=== PATIENT | male | born 1930 | race Caucasian/White ===

== ENCOUNTER 2017-09-17 08:54 | Emergency (ER) | payer MEDICARE ==
[2017-09-17 09:26] LABS: #Basophils 0.1 thou/uL (0.0-0.2); #Eosinphils 0.3 thou/uL (0.0-0.7); #Monocytes 0.6 thou/uL (0.11-0.59); #Neutrophils 6.8 thou/uL (1.40-6.50); %Basophils 0.9 % (0.0-1.0); %Lymphocytes 11.8 % (21.0-51.0); %Monocytes 6.4 % (0.0-10.0); %Neutrophils 77.8 % (42.0-75.0); Hemoglobin 13.9 g/dL (14.0-18.0); Mean Corpuscular HGB CONC 32.6 g/dL (32.0-36.0); Mean Corpuscular Hemoglobin 28.2 pg (27.0-31.0); Mean Corpuscular Volume 86.7 fl (80.0-94.0); Mean Platelet Volume 6.4 fL (7.4-10.4); Platelet Count 226 thou/uL (130-400); RBC Distribution Width 12.9 % (11.5-14.5); Red Blood Cell (RBC) Count 4.93 mill/uL (4.70-6.10); White Blood Cell (WBC) Count 8.7 thou/uL (4.8-10.8)
[2017-09-17 09:44] LABS: ALT (SGPT) 19 U/L (8-55); AST (SGOT) 19 U/L (5-34); Alkaline Phosphatase 107 U/L (40-150); Anion Gap 15 mmol/L (10-20); BUN (Urea Nitrogen) 24 mg/dL (8.4-25.7); Calc. Creatinine Clearance 0 mL/min (70-130); Calcium 9.5 mg/dL (7.8-10.44); Carbon Dioxide 26 mmol/L (23-31); Chloride 101 mmol/L (98-107); Estimated GFR-MDRD 55; Globulin 3.6 g/dL (2.4-3.5); Glucose 103 mg/dL (83-110); Potassium 4.7 mmol/L (3.5-5.1); Protein, Total 7.6 g/dL (5.8-8.1); Sodium 137 mmol/L (136-145)
[2017-09-17 09:46] LABS: CKMB 2.1 ng/mL (0-6.6); Troponin I Less than 0.010 ng/mL (< 0.028)
--- NOTE | 2017-09-17 15:23 | RAD ---
PORTABLE CHEST: Date: 09/17/17 An AP portable film at 0906 hours is compared with the 07/04/15 study. FINDINGS: There has been little interval change. Slight elevation of the left hemidiaphragm is chronic. There i s a slight increase in the interstitial lung markings, but I believe this is not acute. There are no lobar infiltrates or effusions. The upper lobe vessels are not congested. The heart size is normal an d unchanged. The trachea is midline. IMPRESSION: No acute thoracic finding. POS: HOME
== END 2017-09-17 10:42 | disposition home or self-care (01) ==
LOC: BURERS 08:54
DX: R11.2 Nausea with vomiting, unspecified (principal); E78.5 Hyperlipidemia, unspecified; I10 Essential (primary) hypertension; Z79.899 Other long term (current) drug therapy
CPT/HCPCS: 71045; 80053; 82553; 84484; 85025; 93005

== ENCOUNTER 2017-12-01 11:23 | Inpatient (IN) | payer MEDICARE ==
[2017-12-01 14:54] VITALS: BMI 24.4
[2017-12-01] MEDS: HYDROcodone/Acetaminophen 5/325 mg Tablet PO PRN (17:42)
[2017-12-01] MEDS ORDERED: Atorvastatin Calcium 10 MG TAB PO SCH (21:00)
[2017-12-01] MEDS: Atorvastatin Calcium 40 MG TAB PO SCH (21:46)
[2017-12-01] MEDS: Aspirin 325 MG TAB PO SCH (21:46)
[2017-12-01] MEDS: GLYCERIN EA EYE SCH (21:47)
[2017-12-01] MEDS: CARBOXYMETHYLCELLULOS EA EYE SCH (21:47)
[2017-12-01] MEDS: COMBIGAN R EYE SCH (21:47)
[2017-12-02] MEDS ORDERED: Non-Formulary Item 1 EACH (Lisinopril/Hydrochlorothiazide [Lisinopril-Hctz 20-12.5 Mg Tab PO SCH (09:00)
[2017-12-02] MEDS ORDERED: Timolol 0.5% Ophth Soln 5 ml Bottle EA EYE SCH (09:00)
[2017-12-02] MEDS ORDERED: Brimonidine Tartrate 0.2% Ophth Soln 5 ml Bottle EA EYE SCH (09:00)
[2017-12-02] MEDS: HYDROcodone/Acetaminophen 5/325 mg Tablet PO PRN ×2 (09:57→16:01)
[2017-12-02] MEDS: Aspirin 325 MG TAB PO SCH ×2 (09:59→21:37)
[2017-12-02] MEDS: COMBIGAN R EYE SCH ×2 (09:59→21:38)
[2017-12-02] MEDS: GLYCERIN EA EYE SCH ×2 (10:00→21:38)
[2017-12-02] MEDS: CARBOXYMETHYLCELLULOS EA EYE SCH ×2 (10:00→21:38)
[2017-12-02] MEDS ORDERED: Lisinopril 20 MG TAB PO SCH (11:00)
[2017-12-02] MEDS ORDERED: Hydrochlorothiazide 25 MG TAB PO SCH (11:00)
[2017-12-02] MEDS: Atorvastatin Calcium 40 MG TAB PO SCH (21:37)
[2017-12-03] MEDS: Hydrochlorothiazide 25 MG TAB PO SCH (09:34)
[2017-12-03] MEDS: Aspirin 325 MG TAB PO SCH ×2 (09:34→21:09)
[2017-12-03] MEDS: CARBOXYMETHYLCELLULOS EA EYE SCH ×2 (09:35→21:11)
[2017-12-03] MEDS: COMBIGAN R EYE SCH ×2 (09:35→21:11)
[2017-12-03] MEDS: Lisinopril 20 MG TAB PO SCH (09:35)
[2017-12-03] MEDS: GLYCERIN EA EYE SCH ×2 (09:35→21:11)
[2017-12-03] MEDS: HYDROcodone/Acetaminophen 5/325 mg Tablet PO PRN (18:17)
[2017-12-03] MEDS: Bisacodyl 5 MG TAB PO PRN (18:18)
[2017-12-03] MEDS: Atorvastatin Calcium 40 MG TAB PO SCH (21:08)
--- NOTE | 2017-12-04 08:22 | HP ---
ADMITTING PHYSICIAN: Dr. Penny Pearson PRIMARY CARE PHYSICIAN: Dr. Scar Sanz CHIEF COMPLAINT: Skilled care with physical and occupational therapy, status post left hip arthropla sty. HISTORY OF PRESENT ILLNESS: Mr. Brambila is an 87-year-old pleasant gentleman with hypert ension, hyperlipidemia, glaucoma and degenerative joint disease. The patient underwent elective left hip replacement on 11/28/2017. He did fine intraoperatively and postoperatively. Prior to his gan sfer the patient was able to participate with physical therapy. He walked about 270 feet using rolli ng walker with contact guard assist. The patient had significant fatigue, weakness after the physica l therapy. Due to his poor gait, decreased strength and endurance, recommendations for [facility] with physical therapy was initiated. He denies any worsening pain. His appetite is fair , no urinary complaints. He plans to go home with possible home health. PAST MEDICAL HISTORY: 1. Hypertension. 2. Hyperlipidemia. 3. Glaucoma. 4. Degenerative disk disease. PAST SURGICAL HISTORY: 1. Bladder surgery. 2. Total knee replacement, bilateral. 3. Hernia repair. 4. Appendectomy. 5. Laparoscopic cholecystectomy. 6. Carpal tunnel surgery. 7. Umbilical hernia repair. FAMILY HISTORY: Father due to heart attack. Mother due to old age. SOCIAL HISTORY: The patient is a nonsmoker, denies alcohol or drug use. The patient is with 2 children. He is retired, disabled due to knee problems. ALLERGIES: PENICILLIN. REVIEW OF SYSTEMS: GENERAL: Negative for weight loss or gain. Negative for fever or chills. HEAD/NECK: Positive for blurred vision. Negative for sore throat. CARDIOVASCULAR: Negative for palpitation, dyspnea or orthopnea. RESPIRATORY: Negative for shortness of breath, wheezing or chronic cough. GASTROINTESTINAL: Negative for abdominal pain, nausea, vomiting or diarrhea. GENITOURINARY: Negative for urgency, frequency, dysuria or nocturia. MUSCULOSKELETAL: Positive for left hip pain secondary to recent surgery, poor gait. PSYCHIATRIC: Negative for anxiety or depression. SKIN: Negative for skin rash or bleeding. MEDICATIONS: 1. Aspirin 325 mg b.i.d. 2. Lipitor 40 mg at bedtime. 3. Dulcolax 10 mg p.r.n. for constipation. 4. Hydrochlorothiazide 12.5 mg daily. 5. Hydrocodone 1 tablet every 6 hours p.r.n. for pain. 6. Lisinopril 20 mg daily. PHYSICAL EXAMINATION: VITAL SIGNS: Blood pressure of 132/61, temperature 98.5, pulse of 89, respiratory rate of 18, 02 sat 98% on room air. GENERAL: The patient is alert, oriented, not in respiratory distress. HEENT: Normocephalic, atraumatic. Pupils equally reactive to light. NECK: Supple. Negative for lymphadenopathy. Negative for carotid bruit or jugular venous distentio n. LUNGS: Symmetrical expansion. Clear to auscultation bilaterally. HEART: Regular rate and rhythm. Negative for murmur, rubs, gallops or heaves. ABDOMEN: Flat, soft, nontender, normoactive bowel sounds. Negative for deep or rebound tenderness. BACK: Negative for CVA tenderness. EXTREMITIES: Positive for decreased strength on left lower extremity secondary to recent surgery. N egative for cyanosis or clubbing. LABORATORY: Reviewed. ASSESSMENT AND PLAN: 1. Left total hip replacement, postoperative day #3, surgery done by Dr. Giles, negative for intrao perative or postoperative complication. The patient will get aspirin for deep venous thrombosis prop hylaxis. 2. Hypertension. Continue present hydrochlorothiazide and lisinopril. 3. Hyperlipidemia. Continue statins. 4. Glaucoma/macular degeneration. Continue home med eyedrops. 5. We will continue to monitor for infection, bleeding, pain management and side effects of current medication. He will participate with physical therapy to address strength, range of motion, transfer training, gait transfers, family training, and safety training with progression to home exercises. He will participate with Occupational Therapy to address ADLs. Case management to address how the pa tient can be discharged safely in a timely manner. Anticipate discharge to home in about 2 weeks.
[2017-12-04] MEDS: Lisinopril 20 MG TAB PO SCH (08:29)
[2017-12-04] MEDS: Bisacodyl 5 MG TAB PO PRN (08:29)
[2017-12-04] MEDS: Aspirin 325 MG TAB PO SCH ×2 (08:30→20:38)
[2017-12-04] MEDS: Hydrochlorothiazide 25 MG TAB PO SCH (08:30)
[2017-12-04] MEDS: CARBOXYMETHYLCELLULOS EA EYE SCH ×2 (08:32→20:39)
[2017-12-04] MEDS: GLYCERIN EA EYE SCH ×2 (08:32→20:39)
[2017-12-04] MEDS: COMBIGAN R EYE SCH ×2 (08:34→20:39)
[2017-12-04] MEDS: HYDROcodone/Acetaminophen 5/325 mg Tablet PO PRN ×3 (09:45→22:11)
[2017-12-04] MEDS: Atorvastatin Calcium 40 MG TAB PO SCH (20:38)
[2017-12-05] MEDS: HYDROcodone/Acetaminophen 5/325 mg Tablet PO PRN ×2 (06:41→20:57)
[2017-12-05] MEDS: Lisinopril 20 MG TAB PO SCH (08:14)
[2017-12-05] MEDS: Aspirin 325 MG TAB PO SCH ×2 (08:14→20:56)
[2017-12-05] MEDS: Bisacodyl 5 MG TAB PO PRN ×2 (08:14→21:02)
[2017-12-05] MEDS: Hydrochlorothiazide 25 MG TAB PO SCH (08:15)
[2017-12-05] MEDS: COMBIGAN R EYE SCH ×2 (09:00→21:06)
[2017-12-05] MEDS: GLYCERIN EA EYE SCH ×2 (09:00→21:04)
[2017-12-05] MEDS: CARBOXYMETHYLCELLULOS EA EYE SCH ×2 (09:00→21:04)
[2017-12-05] MEDS: Atorvastatin Calcium 40 MG TAB PO SCH (20:56)
[2017-12-06] MEDS: Aspirin 325 MG TAB PO SCH ×2 (09:09→20:17)
[2017-12-06] MEDS: Hydrochlorothiazide 25 MG TAB PO SCH (09:09)
[2017-12-06] MEDS: Lisinopril 20 MG TAB PO SCH (09:10)
[2017-12-06] MEDS: GLYCERIN EA EYE SCH ×2 (09:11→21:56)
[2017-12-06] MEDS: COMBIGAN R EYE SCH ×2 (09:11→21:56)
[2017-12-06] MEDS: CARBOXYMETHYLCELLULOS EA EYE SCH ×2 (09:11→21:56)
[2017-12-06] MEDS: HYDROcodone/Acetaminophen 5/325 mg Tablet PO PRN (20:16)
[2017-12-06] MEDS: Atorvastatin Calcium 40 MG TAB PO SCH (21:56)
[2017-12-07] MEDS: Aspirin 325 MG TAB PO SCH ×2 (09:13→21:36)
[2017-12-07] MEDS: Hydrochlorothiazide 25 MG TAB PO SCH (09:13)
[2017-12-07] MEDS: Lisinopril 20 MG TAB PO SCH (09:13)
[2017-12-07] MEDS: CARBOXYMETHYLCELLULOS EA EYE SCH ×2 (09:16→21:35)
[2017-12-07] MEDS: GLYCERIN EA EYE SCH ×2 (09:16→21:35)
[2017-12-07] MEDS: COMBIGAN R EYE SCH ×2 (09:16→21:36)
[2017-12-07] MEDS: Atorvastatin Calcium 40 MG TAB PO SCH (21:37)
[2017-12-08] MEDS: Lisinopril 20 MG TAB PO SCH (08:31)
[2017-12-08] MEDS: Hydrochlorothiazide 25 MG TAB PO SCH (08:31)
[2017-12-08] MEDS: Aspirin 325 MG TAB PO SCH ×2 (08:31→20:34)
[2017-12-08] MEDS: CARBOXYMETHYLCELLULOS EA EYE SCH ×2 (08:35→20:35)
[2017-12-08] MEDS: GLYCERIN EA EYE SCH ×2 (08:35→20:35)
[2017-12-08] MEDS: COMBIGAN R EYE SCH ×2 (08:36→20:36)
[2017-12-08] MEDS: Atorvastatin Calcium 40 MG TAB PO SCH (20:34)
[2017-12-09] MEDS: Hydrochlorothiazide 25 MG TAB PO SCH (08:51)
[2017-12-09] MEDS: Lisinopril 20 MG TAB PO SCH (08:51)
[2017-12-09] MEDS: Aspirin 325 MG TAB PO SCH ×2 (08:52→21:27)
[2017-12-09] MEDS: GLYCERIN EA EYE SCH ×2 (08:55→21:29)
[2017-12-09] MEDS: CARBOXYMETHYLCELLULOS EA EYE SCH ×2 (08:55→21:29)
[2017-12-09] MEDS: COMBIGAN R EYE SCH ×2 (08:56→21:29)
[2017-12-09] MEDS: Atorvastatin Calcium 40 MG TAB PO SCH (21:27)
[2017-12-10] MEDS: Aspirin 325 MG TAB PO SCH ×2 (10:04→20:45)
[2017-12-10] MEDS: Lisinopril 20 MG TAB PO SCH (10:05)
[2017-12-10] MEDS: Hydrochlorothiazide 25 MG TAB PO SCH (10:05)
[2017-12-10] MEDS: GLYCERIN EA EYE SCH ×2 (10:08→20:46)
[2017-12-10] MEDS: COMBIGAN R EYE SCH ×2 (10:08→20:46)
[2017-12-10] MEDS: CARBOXYMETHYLCELLULOS EA EYE SCH ×2 (10:08→20:46)
[2017-12-10] MEDS: Atorvastatin Calcium 40 MG TAB PO SCH (20:45)
[2017-12-11] MEDS: Lisinopril 20 MG TAB PO SCH (08:59)
[2017-12-11] MEDS: Hydrochlorothiazide 25 MG TAB PO SCH (08:59)
[2017-12-11] MEDS: Aspirin 325 MG TAB PO SCH ×2 (09:00→20:46)
[2017-12-11] MEDS: GLYCERIN EA EYE SCH ×2 (09:01→20:49)
[2017-12-11] MEDS: CARBOXYMETHYLCELLULOS EA EYE SCH ×2 (09:01→20:49)
[2017-12-11] MEDS: COMBIGAN R EYE SCH ×2 (09:01→20:48)
[2017-12-11] MEDS: Atorvastatin Calcium 40 MG TAB PO SCH (20:47)
[2017-12-12 06:23] VITALS: TEMP 97.8
[2017-12-12] MEDS: Lisinopril 20 MG TAB PO SCH (08:27)
[2017-12-12] MEDS: Aspirin 325 MG TAB PO SCH (08:27)
[2017-12-12] MEDS: Hydrochlorothiazide 25 MG TAB PO SCH (08:27)
[2017-12-12 08:28] VITALS: BP 130/65
[2017-12-12] MEDS: COMBIGAN R EYE SCH (08:28)
[2017-12-12] MEDS: CARBOXYMETHYLCELLULOS EA EYE SCH (08:28)
[2017-12-12] MEDS: GLYCERIN EA EYE SCH (08:28)
== END 2017-12-12 13:29 | disposition home or self-care (01) | DRG 561 ==
LOC: BURMED 12:36
PROVIDERS: ADMIT Family Medicine; ATTEND Family Medicine
DX: Z47.1 Aftercare following joint replacement surgery (principal); Z96.642 Presence of left artificial hip joint; R26.89 Other abnormalities of gait and mobility; I10 Essential (primary) hypertension; E78.5 Hyperlipidemia, unspecified; H40.9 Unspecified glaucoma; Z96.653 Presence of artificial knee joint, bilateral; Z88.0 Allergy status to penicillin; Z79.82 Long term (current) use of aspirin; Z79.891 Long term (current) use of opiate analgesic
CPT/HCPCS: G8978-GP-CK; G8979-GP-CI